=== PATIENT | male | born 1980 | race Caucasian/White ===

== ENCOUNTER 2024-11-29 11:28 | Emergency (ER) | payer OTHER ==
[~2024-11-29] VITALS: Ht 172.7 cm; Wt 86.2 kg
[~2024-11-29 11:28] MED LIST: AMOXICILLIN500 MG PO; CLINDAMYCIN HC300 MG PO; MEDROL DOSEPAK4 MG PO; VICODIN ES 7501 TAB PO
[2024-11-29] MEDS ORDERED: Tdap Vaccine 0.5 ML SYR (Adult Vaccine) IM ONE (11:45)
[2024-11-29] MEDS ORDERED: Lidocaine Hydrochloride 2% 10 ML AMP SC ONE (11:45)
[2024-11-29] MEDS ORDERED: CEPHALEXIN500 M1 PO (12:14)
[2024-11-29] MEDS ORDERED: Bacitracin Zinc/Neomycin/Pol 15 GM TUBE T ONE (12:15)
== END 2024-11-29 12:35 | disposition home or self-care (01) ==
LOC: ED 11:28
DX: S61.214A Laceration without foreign body of right ring finger without damage to nail, initial encounter (principal); W23.0XXA Caught, crushed, jammed, or pinched between moving objects, initial encounter; Y93.89 Activity, other specified; Y92.89 Other specified places as the place of occurrence of the external cause; Y99.0 Civilian activity done for income or pay